=== PATIENT | female | born 1945 | race Caucasian/White ===

== ENCOUNTER 2021-08-01 19:32 | Emergency (ER) | payer OTHER ==
[2021-08-01] MEDS ORDERED: Albuterol/Ipratropium 3.0-0.5 MG/3 ML Neb Soln NEB ONE (20:50)
[2021-08-01] MEDS ORDERED: Sodium Chloride 0.9% 1,000 ML IV ONE (21:55)
[2021-08-01 22:50] LABS: CORONAVIRUS COVID-19 NAA NEGATIVE (NEGATIVE)
[2021-08-02] MEDS ORDERED: Iopamidol 755 Mg/ML 100 ML Bottle IVPUSH ONE (01:20)
[2021-08-02] MEDS ORDERED: Sodium Chloride 0.9% 10 ML SDV FLUSH ONE (01:20)
[2021-08-02] MEDS ORDERED: Sodium Chloride 0.9% 100 ML IV SCH (01:30)
[2021-08-02] MEDS ORDERED: Albuterol/Ipratropium 3.0-0.5 MG/3 ML Neb Soln NEB ONE (01:52)
[2021-08-02] MEDS ORDERED: Acetaminophen 325 MG Tab PO ONE (01:52)
[2021-08-02] MEDS ORDERED: Doxycycline 100 MG Cap PO ONE (02:17)
[2021-08-02] MEDS ORDERED: Amoxicillin 500 MG Cap PO ONE (02:17)
== END 2021-08-02 08:10 | disposition home or self-care (01) ==
LOC: JD.ED 19:32
DX: J18.9 Pneumonia, unspecified organism (principal); J44.9 Chronic obstructive pulmonary disease, unspecified; Z87.891 Personal history of nicotine dependence; Z79.82 Long term (current) use of aspirin; Z79.899 Other long term (current) drug therapy; Z20.822 Contact with and (suspected) exposure to COVID-19
CPT/HCPCS: 0241U; 36415; 71045; 71275; 80053; 81001; 84484; 85025; 85379; 85610; 86140; 93005; 94640; 99285; A9270; J7030; Q9967; 93010; J7620-GY

== ENCOUNTER 2023-05-24 02:02 | Emergency (ER) | payer MEDICARE, OTHER ==
[2023-05-24] MEDS ORDERED: Sodium Chloride 0.9% 10 ML Syringe FLUSH PRN (02:21)
[2023-05-24 02:51] LABS: BASOPHILS PERCENT AUTO 0.4 % (0.0-1.0); EOSINOPHILS ABSOLUTE AUTO 0.2 K/mm3 (0.0-0.4); EOSINOPHILS PERCENT AUTO 2.7 % (0.0-6.0); HEMATOCRIT 38.7 % (37.0-47.0); HEMOGLOBIN 12.8 gm/dl (12.0-16.0); IMMATURE GRAN ABSOLUTE AUTO 0.02 K/mm3 (0.00-0.05); IMMATURE GRAN PERCENT AUTO 0.3 % (0.0-0.4); LYMPHOCYTES ABSOLUTE AUTO 1.9 K/mm3 (1.0-4.8); MEAN CORPUSCULAR HEMOGLOBIN 34.6 pg (28.0-32.0); MEAN CORPUSCULAR HGB CONC 33.1 g/dl (32.0-36.0); MEAN CORPUSCULAR VOLUME 104.6 fl (83.0-99.0); MEAN PLATELET VOLUME 9.2 fl (9.4-12.3); MONOCYTES ABSOLUTE AUTO 0.7 K/mm3 (0.0-0.8); MONOCYTES PERCENT AUTO 9.5 % (0.0-8.0); NEUTROPHILS ABSOLUTE AUTO 4.4 K/mm3 (1.8-7.7); NEUTROPHILS PERCENT AUTO 61.1 % (41.0-71.0); PLATELET COUNT,PLT 199 K/mm3 (150-400); WHITE BLOOD CELL COUNT,WBC 7.16 K/mm3 (3.9-11.3)
[2023-05-24 03:20] LABS: A/G RATIO 0.9 (1-2); ALBUMIN 3.3 g/dl (3.4-5.0); ANION GAP 13.3 (5-15); BILIRUBIN TOTAL 0.4 mg/dL (0.2-1.0); C-REACTIVE PROTEIN 0.6 mg/dL (<1.0); CREATININE 1.6 mg/dL (0.55-1.02); EST CRCL DRUG DOSING (CG) 23.58 mL/min; MAGNESIUM 1.9 mg/dL (1.8-2.4); POTASSIUM,K 3.3 mEq/L (3.5-5.1); PROTEIN TOTAL,TP 6.8 g/dl (6.4-8.2)
[2023-05-24 03:43] LABS: CORONAVIRUS COVID-19 NAA NEGATIVE (NEGATIVE); INFLUENZA A NAA NEGATIVE (NEGATIVE); RESPIRATORY SYNCYTIAL VIR NAA NEGATIVE (NEGATIVE)
[2023-05-24 04:51] LABS: APPEARANCE,URINE CLEAR (Clear); BILIRUBIN,URINE 1+ (Negative); COLOR,URINE YELLOW (Yellow); GLUCOSE,URINE NEGATIVE (Negative); KETONES,URINE TRACE (Negative); LEUKOCYTE ESTERASE,URINE 1+ (Negative); NITRITE,URINE NEGATIVE (Negative); OCCULT BLOOD,URINE NEGATIVE (Negative); PROTEIN,URINE TRACE (Negative)
[2023-05-24 04:59] LABS: BACTERIA,URINE MODERATE /hpf (FEW); HYALINE CASTS,URINE 0-5 /lpf (0-5); MUCUS,URINE FEW /hpf (FEW); RBC,URINE 0-5 /hpf (0-5)
[2023-05-24] MEDS ORDERED: Cephalexin 500 MG Cap PO ONE (05:15)
== END 2023-05-24 05:46 | disposition home or self-care (01) ==
LOC: JD.ED 02:02
DX: G47.00 Insomnia, unspecified (principal); N30.00 Acute cystitis without hematuria; I10 Essential (primary) hypertension; J44.9 Chronic obstructive pulmonary disease, unspecified; Z79.899 Other long term (current) drug therapy; Z79.82 Long term (current) use of aspirin; Z20.822 Contact with and (suspected) exposure to COVID-19
CPT/HCPCS: 0241U; 36415; 70450; 80053; 81001; 83735; 84484; 85025; 86140; 93005; 99285; A9270; J3490; 93010; 99283

== ENCOUNTER 2023-05-25 02:26 | Observation (INO) | payer MEDICARE ==
[2023-05-25] MEDS ORDERED: QUEtiapine 25 MG Tab PO ONE ×2 (02:48→07:49)
[2023-05-25] MEDS ORDERED: cefTRIAXone 1 GM, Lidocaine 1% 2.1 ML IM ONE ×2 (10:10)
[2023-05-25] MEDS ORDERED: cefTRIAXone 2 GM in Sodium Chloride 0.9% 100 ML IV SCH (11:45)
[2023-05-25] MEDS ORDERED: Ondansetron 4 MG Tab.DIS PO PRN (12:38)
[2023-05-25] MEDS ORDERED: Acetaminophen 325 MG Tab PO PRN (12:38)
[2023-05-25] MEDS ORDERED: Sodium Chloride 0.9% 10 ML Syringe FLUSH PRN (13:22)
[2023-05-25] MEDS ORDERED: cefTRIAXone 2 GM in Sodium Chloride 0.9% 100 ML IV ONE (14:00)
[2023-05-25] MEDS: Enoxaparin 30 MG/0.3 ML Syringe SUBCUT SCH (14:17)
[2023-05-25] MEDS: VILANTEROL INH SCH (20:23)
[2023-05-25] MEDS: FLUTICASONE INH SCH (20:23)
[2023-05-25] MEDS: BUPROPION 100 MG PO SCH (20:24)
[2023-05-25] MEDS: Sodium Chloride 0.9% 10 ML Syringe FLUSH SCH (20:24)
[2023-05-25] MEDS: QUEtiapine 25 MG Tab PO SCH (20:25)
[2023-05-25] MEDS ORDERED: QUEtiapine 25 MG Tab PO SCH (21:00)
[2023-05-25] MEDS ORDERED: traZODone 50 MG Tab PO SCH (21:00)
[2023-05-26] MEDS ORDERED: Albuterol 6.7 GM Inhaler INH PRN (08:36)
[2023-05-26] MEDS: FLUTICASONE INH SCH ×2 (09:16→21:21)
[2023-05-26] MEDS: VILANTEROL INH SCH ×2 (09:16→21:21)
[2023-05-26] MEDS: Aspirin 81 MG Tab.EC PO SCH (09:46)
[2023-05-26] MEDS: Lisinopril 20 MG Tab **PTOM PO SCH (09:47)
[2023-05-26] MEDS: Sodium Chloride 0.9% 10 ML Syringe FLUSH SCH ×2 (09:48→20:44)
[2023-05-26] MEDS: BUPROPION 100 MG PO SCH ×2 (09:48→20:43)
[2023-05-26] MEDS: Metoprolol Succinate 50 MG Tab.ER **PTOM PO SCH (09:49)
[2023-05-26] MEDS: Cholecalciferol (Vitamin D3) 25 MCG Tab PO SCH (09:52)
[2023-05-26 10:09] LABS: ANION GAP 12.3 (5-15); BUN/CREATININE RATIO 15.3 (14-18); CALCIUM 8.9 mg/dL (8.5-10.1); CREATININE 1.5 mg/dL (0.55-1.02); EST CRCL DRUG DOSING (CG) 25.16 mL/min; MAGNESIUM 1.9 mg/dL (1.8-2.4); POTASSIUM,K 3.3 mEq/L (3.5-5.1)
[2023-05-26] MEDS: Enoxaparin 30 MG/0.3 ML Syringe SUBCUT SCH ×2 (11:40→12:23)
[2023-05-26] MEDS: Potassium Chloride 20 MEQ Tab.ER PO SCH ×2 (11:40→20:33)
[2023-05-26] MEDS ORDERED: cefTRIAXone 1 GM in Sodium Chloride 0.9% 100 ML IV SCH (14:00)
[2023-05-26] MEDS: QUEtiapine 25 MG Tab PO SCH (20:34)
[2023-05-26] MEDS ORDERED: Famotidine 20 MG Tab **PTOM PO SCH (21:00)
[2023-05-26] MEDS ORDERED: CARBIDOPA PO PRN (21:00)
[2023-05-26] MEDS ORDERED: LEVODOPA PO PRN (21:00)
[2023-05-27] MEDS: Lisinopril 20 MG Tab **PTOM PO SCH (08:32)
[2023-05-27] MEDS: BUPROPION 100 MG PO SCH (08:32)
[2023-05-27] MEDS: Cholecalciferol (Vitamin D3) 25 MCG Tab PO SCH (08:32)
[2023-05-27] MEDS: Aspirin 81 MG Tab.EC PO SCH (08:32)
[2023-05-27] MEDS: Metoprolol Succinate 50 MG Tab.ER **PTOM PO SCH (08:33)
[2023-05-27] MEDS: Sodium Chloride 0.9% 10 ML Syringe FLUSH SCH (08:33)
[2023-05-27] MEDS: VILANTEROL INH SCH ×2 (08:50→22:12)
[2023-05-27] MEDS: FLUTICASONE INH SCH ×2 (08:50→22:12)
[2023-05-27] MEDS ORDERED: cefTRIAXone 2 GM in Sodium Chloride 0.9% 100 ML IV ONE (11:00)
[2023-05-27] MEDS: Enoxaparin 30 MG/0.3 ML Syringe SUBCUT SCH (12:58)
[2023-05-27] MEDS: QUEtiapine 25 MG Tab PO SCH (20:03)
== END 2023-05-27 20:10 | disposition home or self-care (01) ==
LOC: JD.ED 02:26 → JD.MS 11:44
PROVIDERS: ADMIT Internal Medicine; ATTEND Internal Medicine
DX: J44.9 Chronic obstructive pulmonary disease, unspecified (principal); G20.A1 Parkinson's disease without dyskinesia, without mention of fluctuations; F41.9 Anxiety disorder, unspecified; F32.A Depression, unspecified; R41.0 Disorientation, unspecified; N39.0 Urinary tract infection, site not specified; G47.00 Insomnia, unspecified; G30.9 Alzheimer's disease, unspecified; R44.3 Hallucinations, unspecified; K21.9 Gastro-esophageal reflux disease without esophagitis; E87.6 Hypokalemia; Z79.82 Long term (current) use of aspirin; Z79.899 Other long term (current) drug therapy
CPT/HCPCS: 36415; 80048; 83735; 93005; 93010; 94640; 94760; 94761; 96365; 96372; 96376; 97116-GP; 97162-GP; 99223; 99233; 99238; 99283; 99285; A9270-GY; G0378; J0696; J1650; J3490

== ENCOUNTER 2023-07-08 10:50 | Inpatient (IN) | payer MEDICARE, MEDICAID ==
[2023-07-08 12:03] LABS: BASOPHILS PERCENT AUTO 0.3 % (0.0-1.0); EOSINOPHILS ABSOLUTE AUTO 0.1 K/mm3 (0.0-0.4); EOSINOPHILS PERCENT AUTO 0.8 % (0.0-6.0); HEMATOCRIT 42.5 % (37.0-47.0); HEMOGLOBIN 13.7 gm/dl (12.0-16.0); IMMATURE GRAN ABSOLUTE AUTO 0.09 K/mm3 (0.00-0.05); IMMATURE GRAN PERCENT AUTO 0.6 % (0.0-0.4); LYMPHOCYTES ABSOLUTE AUTO 1.1 K/mm3 (1.0-4.8); MEAN CORPUSCULAR HGB CONC 32.2 g/dl (32.0-36.0); MEAN CORPUSCULAR VOLUME 105.5 fl (83.0-99.0); MEAN PLATELET VOLUME 9.4 fl (9.4-12.3); MONOCYTES ABSOLUTE AUTO 0.4 K/mm3 (0.0-0.8); MONOCYTES PERCENT AUTO 2.6 % (0.0-8.0); NEUTROPHILS ABSOLUTE AUTO 12.4 K/mm3 (1.8-7.7); NEUTROPHILS PERCENT AUTO 87.7 % (41.0-71.0); PLATELET COUNT,PLT 173 K/mm3 (150-400); RED BLOOD CELL COUNT 4.03 M/mm3 (4.10-5.30); WHITE BLOOD CELL COUNT,WBC 14.17 K/mm3 (3.9-11.3)
[2023-07-08 12:26] LABS: A/G RATIO 0.9 (1-2); ALANINE AMINOTRANSFERASE,ALT 13 U/L (14-59); ALBUMIN 3.2 g/dl (3.4-5.0); ALKALINE PHOSPHATASE 161 U/L (46-116); ANION GAP 14.1 (5-15); ASPARTATE AMNIOTRANSFERASE,AST 29 U/L (15-37); BILIRUBIN TOTAL 0.8 mg/dL (0.2-1.0); BLOOD UREA NITROGEN,BUN 26 mg/dL (7-18); BUN/CREATININE RATIO 17.3 (14-18); C-REACTIVE PROTEIN <0.2 mg/dL (<1.0); CALCIUM 8.8 mg/dL (8.5-10.1); CARBON DIOXIDE,CO2 24 mEq/L (21-32); CHLORIDE,CL 109 mEq/L (98-107); CREATININE 1.5 mg/dL (0.55-1.02); EST CRCL DRUG DOSING (CG) 24.74 mL/min; ESTIMATED GFR 35 mL/min (>60); GLUCOSE RANDOM 136 mg/dL (70-99); POTASSIUM,K 4.1 mEq/L (3.5-5.1); PROTEIN TOTAL,TP 6.8 g/dl (6.4-8.2); SODIUM,NA 143 mEq/L (136-145)
[2023-07-08] MEDS: Iopamidol 612 MG/ML 100 ML Bottle IVPUSH ONE (13:13)
[2023-07-08] MEDS ORDERED: Sodium Chloride 0.9% 100 ML IV SCH (13:15)
[2023-07-08 14:07] LABS: CORONAVIRUS COVID-19 NAA NEGATIVE (NEGATIVE); INFLUENZA A NAA NEGATIVE (NEGATIVE); RESPIRATORY SYNCYTIAL VIR NAA NEGATIVE (NEGATIVE)
[2023-07-08 14:23] LABS: APPEARANCE,URINE CLEAR (Clear); BILIRUBIN,URINE 2+ (Negative); COLOR,URINE YELLOW (Yellow); GLUCOSE,URINE NEGATIVE (Negative); KETONES,URINE TRACE (Negative); LEUKOCYTE ESTERASE,URINE NEGATIVE (Negative); NITRITE,URINE NEGATIVE (Negative); OCCULT BLOOD,URINE TRACE-INTACT (Negative); PROTEIN,URINE 1+ (Negative)
[2023-07-08 15:12] LABS: EPITHELIAL CELLS,URINE 0-5 /hpf (0-5); RBC,URINE 0-5 /hpf (0-5); WBC,URINE 0-5 /hpf (0-5)
[2023-07-08 15:13] LABS: BACTERIA,URINE RARE /hpf (FEW); HYALINE CASTS,URINE 0-5 /lpf (0-5); MUCUS,URINE NOT SEEN /hpf (FEW)
[2023-07-08] MEDS: Sodium Chloride 0.9% 500 ML IV ONE (18:21)
[2023-07-08] MEDS: metroNIDAZOLE/Normal Saline 500 MG in Premix Bag 1 BAG IV SCH (18:21)
[2023-07-08] MEDS: cefTRIAXone 1 GM in Sodium Chloride 0.9% 100 ML IV SCH (18:22)
[2023-07-08] MEDS: Sodium Chloride 0.9% 10 ML Syringe FLUSH PRN ×2 (18:22→21:01)
[2023-07-08] MEDS: Acetaminophen 325 MG Tab PO ONE (18:30)
[2023-07-08] MEDS: Metoprolol Succinate 50 MG Tab.ER PO ONE (22:03)
[2023-07-08] MEDS: Famotidine 20 MG Tab PO ONE (22:03)
[2023-07-08] MEDS: buPROPion 100 MG Tab.SR PO ONE (22:04)
[2023-07-08] MEDS: Carbidopa/Levodopa 10-100 MG Tab PO ONE (22:04)
[2023-07-09 06:14] LABS: BASOPHILS PERCENT AUTO 0.2 % (0.0-1.0); EOSINOPHILS PERCENT AUTO 0.1 % (0.0-6.0); HEMATOCRIT 38.1 % (37.0-47.0); HEMOGLOBIN 12.5 gm/dl (12.0-16.0); IMMATURE GRAN ABSOLUTE AUTO 0.05 K/mm3 (0.00-0.05); IMMATURE GRAN PERCENT AUTO 0.4 % (0.0-0.4); LYMPHOCYTES ABSOLUTE AUTO 1.6 K/mm3 (1.0-4.8); LYMPHOCYTES PERCENT AUTO 11.3 % (24.0-44.0); MEAN CORPUSCULAR HEMOGLOBIN 34.8 pg (28.0-32.0); MEAN CORPUSCULAR HGB CONC 32.8 g/dl (32.0-36.0); MEAN CORPUSCULAR VOLUME 106.1 fl (83.0-99.0); MEAN PLATELET VOLUME 9.6 fl (9.4-12.3); MONOCYTES ABSOLUTE AUTO 0.8 K/mm3 (0.0-0.8); NEUTROPHILS ABSOLUTE AUTO 11.3 K/mm3 (1.8-7.7); PLATELET COUNT,PLT 154 K/mm3 (150-400); RED BLOOD CELL COUNT 3.59 M/mm3 (4.10-5.30); WHITE BLOOD CELL COUNT,WBC 13.76 K/mm3 (3.9-11.3)
[2023-07-09 06:36] LABS: A/G RATIO 0.9 (1-2); ALBUMIN 2.8 g/dl (3.4-5.0); ANION GAP 16.1 (5-15); BILIRUBIN TOTAL 0.6 mg/dL (0.2-1.0); BUN/CREATININE RATIO 20.8 (14-18); CALCIUM 8.5 mg/dL (8.5-10.1); CREATININE 1.3 mg/dL (0.55-1.02); EST CRCL DRUG DOSING (CG) 28.55 mL/min; POTASSIUM,K 4.1 mEq/L (3.5-5.1); PROTEIN TOTAL,TP 6.1 g/dl (6.4-8.2)
[2023-07-09] MEDS: Lisinopril 20 MG Tab PO SCH (08:11)
[2023-07-09] MEDS: buPROPion 100 MG Tab.SR PO ONE (08:11)
[2023-07-09] MEDS: Aspirin 81 MG Tab.Chew PO ONE (08:11)
[2023-07-09] MEDS: Multivitamin Tab PO SCH (08:12)
[2023-07-09] MEDS: Acetaminophen 325 MG Tab PO ONE (08:12)
[2023-07-09] MEDS ORDERED: Ondansetron 4 MG/2 ML SDV IV PRN (09:06)
[2023-07-09] MEDS ORDERED: Famotidine 20 MG Tab PO PRN (09:09)
[2023-07-09] MEDS ORDERED: FORMOTEROL FUMARATE INH PRN ×2 (09:09→09:18)
[2023-07-09] MEDS ORDERED: BUDESONIDE INH PRN ×2 (09:09→09:18)
[2023-07-09] MEDS ORDERED: [UNRECOGNIZED DRUG - OTHER] INH PRN ×2 (09:09→09:18)
[2023-07-09] MEDS ORDERED: Aspirin 81 MG Tab.EC PO SCH (09:15)
[2023-07-09] MEDS: Non-Formulary Medication 1 Each (Bupropion 100 MG Tablet) PO SCH (10:25)
[2023-07-09] MEDS: Formoterol/Mometasone 200-5 MCG 8.8 GM Inhaler IH SCH (11:22)
[2023-07-09] MEDS: metroNIDAZOLE/Normal Saline 500 MG in Premix Bag 1 BAG IV SCH (12:32)
[2023-07-09] MEDS ORDERED: metroNIDAZOLE/Normal Saline 500 MG in Premix Bag 1 BAG IV SCH (16:30)
[2023-07-09] MEDS ORDERED: cefTRIAXone 2 GM in Sodium Chloride 0.9% 100 ML IV SCH (16:30)
[2023-07-09] MEDS: cefTRIAXone 2 GM in Sodium Chloride 0.9% 100 ML IV SCH (18:22)
[2023-07-09] MEDS: buPROPion 100 MG Tab.SR PO SCH (20:12)
[2023-07-09] MEDS: Metoprolol Succinate 50 MG Tab.ER PO SCH (20:12)
[2023-07-09] MEDS: QUEtiapine 25 MG Tab PO SCH (20:13)
[2023-07-09] MEDS: Acetaminophen 325 MG Tab PO PRN (20:20)
[2023-07-10 05:38] LABS: A/G RATIO 0.7 (1-2); ALBUMIN 2.4 g/dl (3.4-5.0); ANION GAP 14.7 (5-15); BILIRUBIN TOTAL 0.5 mg/dL (0.2-1.0); BUN/CREATININE RATIO 16.4 (14-18); CALCIUM 8.3 mg/dL (8.5-10.1); CREATININE 1.4 mg/dL (0.55-1.02); EST CRCL DRUG DOSING (CG) 26.51 mL/min; POTASSIUM,K 3.7 mEq/L (3.5-5.1); PROTEIN TOTAL,TP 5.8 g/dl (6.4-8.2)
[2023-07-10 05:42] LABS: BASOPHILS PERCENT AUTO 0.3 % (0.0-1.0); EOSINOPHILS ABSOLUTE AUTO 0.1 K/mm3 (0.0-0.4); EOSINOPHILS PERCENT AUTO 0.6 % (0.0-6.0); HEMATOCRIT 32.8 % (37.0-47.0); IMMATURE GRAN ABSOLUTE AUTO 0.04 K/mm3 (0.00-0.05); IMMATURE GRAN PERCENT AUTO 0.4 % (0.0-0.4); LYMPHOCYTES ABSOLUTE AUTO 1.5 K/mm3 (1.0-4.8); LYMPHOCYTES PERCENT AUTO 15.8 % (24.0-44.0); MEAN CORPUSCULAR HEMOGLOBIN 34.4 pg (28.0-32.0); MEAN CORPUSCULAR HGB CONC 32.6 g/dl (32.0-36.0); MEAN CORPUSCULAR VOLUME 105.5 fl (83.0-99.0); MEAN PLATELET VOLUME 10.1 fl (9.4-12.3); MONOCYTES ABSOLUTE AUTO 0.5 K/mm3 (0.0-0.8); MONOCYTES PERCENT AUTO 4.9 % (0.0-8.0); NEUTROPHILS ABSOLUTE AUTO 7.4 K/mm3 (1.8-7.7); PLATELET COUNT,PLT 136 K/mm3 (150-400); RED BLOOD CELL COUNT 3.11 M/mm3 (4.10-5.30); WHITE BLOOD CELL COUNT,WBC 9.51 K/mm3 (3.9-11.3)
[2023-07-10 06:13] LABS: HEMOGLOBIN 10.7 gm/dl (12.0-16.0)
[2023-07-10 06:14] LABS: C-REACTIVE PROTEIN 27.4 mg/dL (<1.0)
[2023-07-10] MEDS: Aspirin 81 MG Tab.EC PO SCH (08:02)
[2023-07-10] MEDS: Enoxaparin 40 MG/0.4 ML Syringe SUBCUT SCH (08:02)
[2023-07-11 06:14] LABS: BASOPHILS PERCENT AUTO 0.3 % (0.0-1.0); EOSINOPHILS ABSOLUTE AUTO 0.1 K/mm3 (0.0-0.4); EOSINOPHILS PERCENT AUTO 1.5 % (0.0-6.0); HEMATOCRIT 32.3 % (37.0-47.0); HEMOGLOBIN 10.4 gm/dl (12.0-16.0); IMMATURE GRAN ABSOLUTE AUTO 0.04 K/mm3 (0.00-0.05); IMMATURE GRAN PERCENT AUTO 0.6 % (0.0-0.4); LYMPHOCYTES ABSOLUTE AUTO 1.5 K/mm3 (1.0-4.8); LYMPHOCYTES PERCENT AUTO 20.5 % (24.0-44.0); MEAN CORPUSCULAR HEMOGLOBIN 34.8 pg (28.0-32.0); MEAN CORPUSCULAR HGB CONC 32.2 g/dl (32.0-36.0); MEAN PLATELET VOLUME 10.2 fl (9.4-12.3); MONOCYTES ABSOLUTE AUTO 0.5 K/mm3 (0.0-0.8); MONOCYTES PERCENT AUTO 6.5 % (0.0-8.0); NEUTROPHILS PERCENT AUTO 70.6 % (41.0-71.0); PLATELET COUNT,PLT 142 K/mm3 (150-400); RED BLOOD CELL COUNT 2.99 M/mm3 (4.10-5.30); WHITE BLOOD CELL COUNT,WBC 7.13 K/mm3 (3.9-11.3)
[2023-07-11 06:52] LABS: A/G RATIO 0.7 (1-2); ALBUMIN 2.3 g/dl (3.4-5.0); ANION GAP 14.4 (5-15); BILIRUBIN TOTAL 0.5 mg/dL (0.2-1.0); BUN/CREATININE RATIO 12.3 (14-18); CALCIUM 8.3 mg/dL (8.5-10.1); CREATININE 1.3 mg/dL (0.55-1.02); EST CRCL DRUG DOSING (CG) 28.55 mL/min; MAGNESIUM 1.9 mg/dL (1.8-2.4); POTASSIUM,K 3.4 mEq/L (3.5-5.1); PROTEIN TOTAL,TP 5.8 g/dl (6.4-8.2)
[2023-07-11 07:46] LABS: C-REACTIVE PROTEIN 19.3 mg/dL (<1.0)
[2023-07-11] MEDS: Enoxaparin 30 MG/0.3 ML Syringe SUBCUT SCH (08:29)
[2023-07-11] MEDS: Potassium Chloride 20 MEQ Tab.ER PO ONE (08:42)
[2023-07-11] MEDS: Famotidine 20 MG Tab PO PRN (15:47)
[2023-07-11] MEDS: Sucralfate 1 GM Tab PO SCH (17:10)
[2023-07-12 05:30] LABS: BASOPHILS PERCENT AUTO 0.7 % (0.0-1.0); EOSINOPHILS ABSOLUTE AUTO 0.1 K/mm3 (0.0-0.4); EOSINOPHILS PERCENT AUTO 2.6 % (0.0-6.0); HEMATOCRIT 31.3 % (37.0-47.0); HEMOGLOBIN 10.2 gm/dl (12.0-16.0); IMMATURE GRAN ABSOLUTE AUTO 0.06 K/mm3 (0.00-0.05); IMMATURE GRAN PERCENT AUTO 1.3 % (0.0-0.4); LYMPHOCYTES ABSOLUTE AUTO 1.4 K/mm3 (1.0-4.8); LYMPHOCYTES PERCENT AUTO 30.8 % (24.0-44.0); MEAN CORPUSCULAR HEMOGLOBIN 35.1 pg (28.0-32.0); MEAN CORPUSCULAR HGB CONC 32.6 g/dl (32.0-36.0); MEAN CORPUSCULAR VOLUME 107.6 fl (83.0-99.0); MEAN PLATELET VOLUME 10.1 fl (9.4-12.3); MONOCYTES ABSOLUTE AUTO 0.4 K/mm3 (0.0-0.8); MONOCYTES PERCENT AUTO 8.7 % (0.0-8.0); NEUTROPHILS ABSOLUTE AUTO 2.6 K/mm3 (1.8-7.7); NEUTROPHILS PERCENT AUTO 55.9 % (41.0-71.0); PLATELET COUNT,PLT 150 K/mm3 (150-400); RED BLOOD CELL COUNT 2.91 M/mm3 (4.10-5.30); WHITE BLOOD CELL COUNT,WBC 4.58 K/mm3 (3.9-11.3)
[2023-07-12 05:38] LABS: A/G RATIO 0.7 (1-2); ALBUMIN 2.3 g/dl (3.4-5.0); ANION GAP 13.2 (5-15); BILIRUBIN TOTAL 0.4 mg/dL (0.2-1.0); EST CRCL DRUG DOSING (CG) 37.12 mL/min; MAGNESIUM 1.8 mg/dL (1.8-2.4); POTASSIUM,K 4.2 mEq/L (3.5-5.1); PROTEIN TOTAL,TP 5.5 g/dl (6.4-8.2)
[2023-07-12 05:45] LABS: C-REACTIVE PROTEIN 12.6 mg/dL (<1.0)
[2023-07-12] MEDS: Lisinopril 5 MG Tab PO SCH (09:06)
[2023-07-12] MEDS: metroNIDAZOLE 500 MG Tab PO SCH (11:07)
[2023-07-13 05:51] LABS: A/G RATIO 0.7 (1-2); ALBUMIN 2.4 g/dl (3.4-5.0); BILIRUBIN TOTAL 0.4 mg/dL (0.2-1.0); BUN/CREATININE RATIO 13.3 (14-18); C-REACTIVE PROTEIN 7.4 mg/dL (<1.0); CALCIUM 8.4 mg/dL (8.5-10.1); CREATININE 1.2 mg/dL (0.55-1.02); EST CRCL DRUG DOSING (CG) 30.93 mL/min; MAGNESIUM 1.9 mg/dL (1.8-2.4); PROTEIN TOTAL,TP 5.7 g/dl (6.4-8.2)
[2023-07-13 05:57] LABS: BASOPHILS PERCENT AUTO 0.4 % (0.0-1.0); EOSINOPHILS ABSOLUTE AUTO 0.1 K/mm3 (0.0-0.4); EOSINOPHILS PERCENT AUTO 2.8 % (0.0-6.0); HEMATOCRIT 29.8 % (37.0-47.0); HEMOGLOBIN 9.6 gm/dl (12.0-16.0); IMMATURE GRAN ABSOLUTE AUTO 0.03 K/mm3 (0.00-0.05); IMMATURE GRAN PERCENT AUTO 0.6 % (0.0-0.4); LYMPHOCYTES ABSOLUTE AUTO 1.4 K/mm3 (1.0-4.8); LYMPHOCYTES PERCENT AUTO 29.8 % (24.0-44.0); MEAN CORPUSCULAR HGB CONC 32.2 g/dl (32.0-36.0); MEAN CORPUSCULAR VOLUME 105.7 fl (83.0-99.0); MEAN PLATELET VOLUME 9.9 fl (9.4-12.3); MONOCYTES ABSOLUTE AUTO 0.5 K/mm3 (0.0-0.8); MONOCYTES PERCENT AUTO 10.4 % (0.0-8.0); NEUTROPHILS ABSOLUTE AUTO 2.6 K/mm3 (1.8-7.7); PLATELET COUNT,PLT 158 K/mm3 (150-400); RED BLOOD CELL COUNT 2.82 M/mm3 (4.10-5.30); WHITE BLOOD CELL COUNT,WBC 4.63 K/mm3 (3.9-11.3)
[2023-07-13 07:22] LABS: SLIDE REVIEW ABNORMAL SMEAR
[2023-07-13] MEDS: Azithromycin 250 MG Tab PO SCH (08:05)
[2023-07-21 06:21] LABS: BASOPHILS PERCENT AUTO 0.5 % (0.0-1.0); EOSINOPHILS ABSOLUTE AUTO 0.1 K/mm3 (0.0-0.4); EOSINOPHILS PERCENT AUTO 2.2 % (0.0-6.0); HEMATOCRIT 29.8 % (37.0-47.0); HEMOGLOBIN 9.4 gm/dl (12.0-16.0); IMMATURE GRAN ABSOLUTE AUTO 0.03 K/mm3 (0.00-0.05); IMMATURE GRAN PERCENT AUTO 0.5 % (0.0-0.4); LYMPHOCYTES ABSOLUTE AUTO 1.8 K/mm3 (1.0-4.8); MEAN CORPUSCULAR HEMOGLOBIN 34.3 pg (28.0-32.0); MEAN CORPUSCULAR HGB CONC 31.5 g/dl (32.0-36.0); MEAN CORPUSCULAR VOLUME 108.8 fl (83.0-99.0); MEAN PLATELET VOLUME 10.5 fl (9.4-12.3); MONOCYTES ABSOLUTE AUTO 0.6 K/mm3 (0.0-0.8); MONOCYTES PERCENT AUTO 9.9 % (0.0-8.0); NEUTROPHILS ABSOLUTE AUTO 3.9 K/mm3 (1.8-7.7); NEUTROPHILS PERCENT AUTO 59.9 % (41.0-71.0); PLATELET COUNT,PLT 263 K/mm3 (150-400); RED BLOOD CELL COUNT 2.74 M/mm3 (4.10-5.30); WHITE BLOOD CELL COUNT,WBC 6.48 K/mm3 (3.9-11.3)
[2023-07-21 06:39] LABS: ANION GAP 12.5 (5-15); BUN/CREATININE RATIO 25.6 (14-18); CALCIUM 8.4 mg/dL (8.5-10.1); CREATININE 1.6 mg/dL (0.55-1.02); EST CRCL DRUG DOSING (CG) 23.2 mL/min; MAGNESIUM 2.5 mg/dL (1.8-2.4); POTASSIUM,K 4.5 mEq/L (3.5-5.1)
[2023-07-21] MEDS: Sodium Chloride 0.9% 1,000 ML IV SCH (11:31)
[2023-07-21] MEDS: Carbamide Peroxide 6.5% Otic Soln 15 ML Bottle EARBOTH SCH (20:33)
[2023-07-22 06:28] LABS: BASOPHILS PERCENT AUTO 0.4 % (0.0-1.0); EOSINOPHILS ABSOLUTE AUTO 0.1 K/mm3 (0.0-0.4); EOSINOPHILS PERCENT AUTO 2.6 % (0.0-6.0); HEMATOCRIT 28.2 % (37.0-47.0); HEMOGLOBIN 9.1 gm/dl (12.0-16.0); IMMATURE GRAN ABSOLUTE AUTO 0.02 K/mm3 (0.00-0.05); IMMATURE GRAN PERCENT AUTO 0.4 % (0.0-0.4); LYMPHOCYTES ABSOLUTE AUTO 1.6 K/mm3 (1.0-4.8); LYMPHOCYTES PERCENT AUTO 31.5 % (24.0-44.0); MEAN CORPUSCULAR HGB CONC 32.3 g/dl (32.0-36.0); MEAN CORPUSCULAR VOLUME 108.5 fl (83.0-99.0); MEAN PLATELET VOLUME 10.5 fl (9.4-12.3); MONOCYTES ABSOLUTE AUTO 0.6 K/mm3 (0.0-0.8); MONOCYTES PERCENT AUTO 11.6 % (0.0-8.0); NEUTROPHILS ABSOLUTE AUTO 2.7 K/mm3 (1.8-7.7); NEUTROPHILS PERCENT AUTO 53.5 % (41.0-71.0); PLATELET COUNT,PLT 240 K/mm3 (150-400); WHITE BLOOD CELL COUNT,WBC 4.99 K/mm3 (3.9-11.3)
[2023-07-22 06:39] LABS: A/G RATIO 0.6 (1-2); ALBUMIN 2.3 g/dl (3.4-5.0); ANION GAP 11.5 (5-15); BILIRUBIN TOTAL 0.3 mg/dL (0.2-1.0); BUN/CREATININE RATIO 24.6 (14-18); CALCIUM 8.1 mg/dL (8.5-10.1); CREATININE 1.3 mg/dL (0.55-1.02); EST CRCL DRUG DOSING (CG) 28.55 mL/min; POTASSIUM,K 4.5 mEq/L (3.5-5.1); PROTEIN TOTAL,TP 6.1 g/dl (6.4-8.2)
[2023-07-22] MEDS: Sodium Chloride 0.9% 1,000 ML IV SCH (10:49)
[2023-07-23 05:57] LABS: EOSINOPHILS ABSOLUTE AUTO 0.2 K/mm3 (0.0-0.4); EOSINOPHILS PERCENT AUTO 4.2 % (0.0-6.0); HEMATOCRIT 29.7 % (37.0-47.0); HEMOGLOBIN 9.5 gm/dl (12.0-16.0); IMMATURE GRAN ABSOLUTE AUTO 0.02 K/mm3 (0.00-0.05); IMMATURE GRAN PERCENT AUTO 0.5 % (0.0-0.4); LYMPHOCYTES ABSOLUTE AUTO 1.7 K/mm3 (1.0-4.8); LYMPHOCYTES PERCENT AUTO 40.9 % (24.0-44.0); MEAN CORPUSCULAR HEMOGLOBIN 35.1 pg (28.0-32.0); MEAN CORPUSCULAR VOLUME 109.6 fl (83.0-99.0); MEAN PLATELET VOLUME 10.4 fl (9.4-12.3); MONOCYTES ABSOLUTE AUTO 0.4 K/mm3 (0.0-0.8); MONOCYTES PERCENT AUTO 10.5 % (0.0-8.0); NEUTROPHILS ABSOLUTE AUTO 1.8 K/mm3 (1.8-7.7); NEUTROPHILS PERCENT AUTO 42.9 % (41.0-71.0); PLATELET COUNT,PLT 246 K/mm3 (150-400); RED BLOOD CELL COUNT 2.71 M/mm3 (4.10-5.30); WHITE BLOOD CELL COUNT,WBC 4.08 K/mm3 (3.9-11.3)
[2023-07-23 06:25] LABS: A/G RATIO 0.6 (1-2); ALBUMIN 2.4 g/dl (3.4-5.0); ANION GAP 10.4 (5-15); BILIRUBIN TOTAL 0.3 mg/dL (0.2-1.0); CALCIUM 8.1 mg/dL (8.5-10.1); CREATININE 1.4 mg/dL (0.55-1.02); EST CRCL DRUG DOSING (CG) 26.51 mL/min; POTASSIUM,K 4.4 mEq/L (3.5-5.1); PROTEIN TOTAL,TP 6.2 g/dl (6.4-8.2)
[2023-07-23] MEDS ORDERED: Sodium Chloride 0.9% 1,000 ML IV SCH (09:00)
[2023-07-23] MEDS ORDERED: Polyethylene Glycol 3350 Powder 17 GM Packet PO PRN (11:02)
[2023-07-23] MEDS: Polyethylene Glycol 3350 Powder 17 GM Packet PO SCH (11:03)
[2023-07-24 04:55] LABS: BASOPHILS PERCENT AUTO 0.6 % (0.0-1.0); EOSINOPHILS ABSOLUTE AUTO 0.1 K/mm3 (0.0-0.4); EOSINOPHILS PERCENT AUTO 2.6 % (0.0-6.0); HEMATOCRIT 30.6 % (37.0-47.0); HEMOGLOBIN 9.8 gm/dl (12.0-16.0); IMMATURE GRAN ABSOLUTE AUTO 0.01 K/mm3 (0.00-0.05); IMMATURE GRAN PERCENT AUTO 0.2 % (0.0-0.4); LYMPHOCYTES ABSOLUTE AUTO 1.7 K/mm3 (1.0-4.8); LYMPHOCYTES PERCENT AUTO 31.8 % (24.0-44.0); MEAN CORPUSCULAR HEMOGLOBIN 34.4 pg (28.0-32.0); MEAN CORPUSCULAR VOLUME 107.4 fl (83.0-99.0); MEAN PLATELET VOLUME 10.4 fl (9.4-12.3); MONOCYTES ABSOLUTE AUTO 0.6 K/mm3 (0.0-0.8); MONOCYTES PERCENT AUTO 10.3 % (0.0-8.0); NEUTROPHILS PERCENT AUTO 54.5 % (41.0-71.0); PLATELET COUNT,PLT 261 K/mm3 (150-400); RED BLOOD CELL COUNT 2.85 M/mm3 (4.10-5.30); WHITE BLOOD CELL COUNT,WBC 5.44 K/mm3 (3.9-11.3)
[2023-07-24 05:18] LABS: ANION GAP 12.8 (5-15); BUN/CREATININE RATIO 21.7 (14-18); CALCIUM 8.8 mg/dL (8.5-10.1); CREATININE 1.2 mg/dL (0.55-1.02); EST CRCL DRUG DOSING (CG) 30.93 mL/min; POTASSIUM,K 4.8 mEq/L (3.5-5.1)
[2023-07-27 06:18] LABS: BASOPHILS PERCENT AUTO 0.9 % (0.0-1.0); EOSINOPHILS ABSOLUTE AUTO 0.2 K/mm3 (0.0-0.4); EOSINOPHILS PERCENT AUTO 3.8 % (0.0-6.0); HEMATOCRIT 34.2 % (37.0-47.0); HEMOGLOBIN 10.9 gm/dl (12.0-16.0); IMMATURE GRAN ABSOLUTE AUTO 0.02 K/mm3 (0.00-0.05); IMMATURE GRAN PERCENT AUTO 0.4 % (0.0-0.4); LYMPHOCYTES ABSOLUTE AUTO 1.7 K/mm3 (1.0-4.8); LYMPHOCYTES PERCENT AUTO 38.2 % (24.0-44.0); MEAN CORPUSCULAR HEMOGLOBIN 34.7 pg (28.0-32.0); MEAN CORPUSCULAR HGB CONC 31.9 g/dl (32.0-36.0); MEAN CORPUSCULAR VOLUME 108.9 fl (83.0-99.0); MEAN PLATELET VOLUME 9.9 fl (9.4-12.3); MONOCYTES ABSOLUTE AUTO 0.5 K/mm3 (0.0-0.8); NEUTROPHILS ABSOLUTE AUTO 2.1 K/mm3 (1.8-7.7); NEUTROPHILS PERCENT AUTO 46.7 % (41.0-71.0); PLATELET COUNT,PLT 281 K/mm3 (150-400); RED BLOOD CELL COUNT 3.14 M/mm3 (4.10-5.30)
[2023-07-27 06:38] LABS: ANION GAP 12.1 (5-15); CALCIUM 8.7 mg/dL (8.5-10.1); CREATININE 1.4 mg/dL (0.55-1.02); EST CRCL DRUG DOSING (CG) 26.51 mL/min; POTASSIUM,K 4.1 mEq/L (3.5-5.1)
== END 2023-07-29 12:56 | DRG 392 ==
LOC: JD.ED 10:50 → JD.MS 07-09 09:14
PROVIDERS: ADMIT Internal Medicine; ATTEND Internal Medicine
DX: K52.9 Noninfective gastroenteritis and colitis, unspecified (principal); F02.84 Dementia in other diseases classified elsewhere, unspecified severity, with anxiety; I10 Essential (primary) hypertension; F02.83 Dementia in other diseases classified elsewhere, unspecified severity, with mood disturbance; F02.82 Dementia in other diseases classified elsewhere, unspecified severity, with psychotic disturbance; E78.5 Hyperlipidemia, unspecified; K21.9 Gastro-esophageal reflux disease without esophagitis; J44.9 Chronic obstructive pulmonary disease, unspecified; Z66 Do not resuscitate; G20.A1 Parkinson's disease without dyskinesia, without mention of fluctuations; G30.9 Alzheimer's disease, unspecified; R53.1 Weakness; G47.00 Insomnia, unspecified; R41.0 Disorientation, unspecified; D53.9 Nutritional anemia, unspecified; F32.89 Other specified depressive episodes; N18.32 Chronic kidney disease, stage 3b; I12.9 Hypertensive chronic kidney disease with stage 1 through stage 4 chronic kidney disease, or unspecified chronic kidney disease; D50.9 Iron deficiency anemia, unspecified; D63.1 Anemia in chronic kidney disease; Z79.899 Other long term (current) drug therapy; Z79.82 Long term (current) use of aspirin; Z87.01 Personal history of pneumonia (recurrent); Z98.890 Other specified postprocedural states; Z11.52 Encounter for screening for COVID-19
CPT/HCPCS: 0241U; 36415; 70450; 74177; 80048; 80053; 81001; 83735; 85025; 86140; 87040; 93005; 94640; 94760; 94761; 96365; 97110; 97116; 97162; 99285; 93010; 99284; A9270-GY; J0696; J1650; J1836; J3490; J7030; Q9967; U0002

== ENCOUNTER 2024-09-11 21:07 | Emergency (ER) | payer MEDICARE ==
[2024-09-11] MEDS ORDERED: Sodium Chloride 0.9% 10 ML Syringe FLUSH PRN (21:28)
[2024-09-11 21:51] LABS: BASOPHILS PERCENT AUTO 0.2 % (0.0-1.0); EOSINOPHILS PERCENT AUTO 0.3 % (0.0-6.0); HEMATOCRIT 43.2 % (37.0-47.0); HEMOGLOBIN 13.9 gm/dl (12.0-16.0); IMMATURE GRAN ABSOLUTE AUTO 0.04 K/mm3 (0.00-0.05); IMMATURE GRAN PERCENT AUTO 0.4 % (0.0-0.4); LYMPHOCYTES ABSOLUTE AUTO 0.6 K/mm3 (1.0-4.8); LYMPHOCYTES PERCENT AUTO 6.9 % (24.0-44.0); MEAN CORPUSCULAR HEMOGLOBIN 32.6 pg (28.0-32.0); MEAN CORPUSCULAR HGB CONC 32.2 g/dl (32.0-36.0); MEAN CORPUSCULAR VOLUME 101.2 fl (83.0-99.0); MEAN PLATELET VOLUME 9.7 fl (9.4-12.3); MONOCYTES ABSOLUTE AUTO 0.3 K/mm3 (0.0-0.8); MONOCYTES PERCENT AUTO 3.5 % (0.0-8.0); NEUTROPHILS ABSOLUTE AUTO 8.1 K/mm3 (1.8-7.7); NEUTROPHILS PERCENT AUTO 88.7 % (41.0-71.0); PLATELET COUNT,PLT 178 K/mm3 (150-400); RED BLOOD CELL COUNT 4.27 M/mm3 (4.10-5.30); WHITE BLOOD CELL COUNT,WBC 9.16 K/mm3 (3.9-11.3)
[2024-09-11 22:11] LABS: A/G RATIO 0.8 (1-2); ALANINE AMINOTRANSFERASE,ALT 23 U/L (14-59); ALBUMIN 3.1 g/dl (3.4-5.0); ALKALINE PHOSPHATASE 71 U/L (46-116); ANION GAP 14.6 (5-15); ASPARTATE AMNIOTRANSFERASE,AST 29 U/L (15-37); BILIRUBIN TOTAL 0.6 mg/dL (0.2-1.0); BLOOD UREA NITROGEN,BUN 34 mg/dL (7-18); BUN/CREATININE RATIO 16.2 (14-18); CALCIUM 8.1 mg/dL (8.5-10.1); CARBON DIOXIDE,CO2 23 mEq/L (21-32); CHLORIDE,CL 106 mEq/L (98-107); CREATININE 2.1 mg/dL (0.55-1.02); ESTIMATED GFR 23 mL/min (>60); GLUCOSE RANDOM 150 mg/dL (70-99); LIPASE 20 U/L (16-77); MAGNESIUM 1.9 mg/dL (1.8-2.4); POTASSIUM,K 4.6 mEq/L (3.5-5.1); PROTEIN TOTAL,TP 7.2 g/dl (6.4-8.2); SODIUM,NA 139 mEq/L (136-145)
[2024-09-11] MEDS: Sodium Chloride 0.9% 1,000 ML IV ONE (22:25)
[2024-09-11 22:46] LABS: APPEARANCE,URINE CLEAR (Clear); BILIRUBIN,URINE NEGATIVE (Negative); COLOR,URINE YELLOW (Yellow); GLUCOSE,URINE NEGATIVE (Negative); KETONES,URINE NEGATIVE (Negative); LEUKOCYTE ESTERASE,URINE NEGATIVE (Negative); NITRITE,URINE NEGATIVE (Negative); OCCULT BLOOD,URINE NEGATIVE (Negative); PH,URINE 6.5 (5.0-8.0); PROTEIN,URINE 1+ (Negative); UROBILINOGEN,URINE 0.2 (0.2-1.0)
[2024-09-11 22:55] LABS: BACTERIA,URINE FEW /hpf (FEW); MUCUS,URINE NOT SEEN /hpf (FEW); RBC,URINE 0-5 /hpf (0-5); SQUAMOUS EPITHELIAL CELLS,UR 0-5 /hpf (0-5); WBC,URINE 0-5 /hpf (0-5)
[2024-09-11 23:03] LABS: CORONAVIRUS COVID-19 NAA NEGATIVE (NEGATIVE); INFLUENZA A NAA NEGATIVE (NEGATIVE); RESPIRATORY SYNCYTIAL VIR NAA NEGATIVE (NEGATIVE)
[2024-09-12 02:22] LABS: CREATININE 2.1 mg/dL (0.55-1.02); EST CRCL DRUG DOSING (CG) 17.38 mL/min
[2024-09-12] MEDS: Sodium Chloride 0.9% 500 ML IV ONE (04:31)
[2024-09-12] MEDS: Acetaminophen 325 MG Tab PO ONE (06:03)
== END 2024-09-12 06:11 | disposition home or self-care (01) ==
LOC: JD.ED 21:07
DX: R11.2 Nausea with vomiting, unspecified (principal); R19.7 Diarrhea, unspecified; R10.84 Generalized abdominal pain; I10 Essential (primary) hypertension; J44.9 Chronic obstructive pulmonary disease, unspecified; Z88.8 Allergy status to other drugs, medicaments and biological substances; Z79.82 Long term (current) use of aspirin; Z79.899 Other long term (current) drug therapy
CPT/HCPCS: 0241U; 36415; 71045; 74176; 80053; 81001; 82565; 83690; 83735; 85025; 93005; 96360; 96361; 99285; A9270; J7030; 93010; 99284